=== PATIENT | female | born 1970 | race Hispanic/Latino ===

== ENCOUNTER 2021-12-02 17:09 | Emergency (ER) | payer BC, OTHER ==
[~2021-12-02] VITALS: Ht 167.6 cm; Wt 73.5 kg
[2021-12-02 17:15] VITALS: BP 145/75
== END 2021-12-02 17:17 | disposition left against medical advice (07) ==
LOC: EDH 17:09
DX: M25.512 Pain in left shoulder (principal); Z53.21 Procedure and treatment not carried out due to patient leaving prior to being seen by health care provider